=== PATIENT | female | born 1970 | race Caucasian/White ===

== ENCOUNTER 2017-12-11 11:17 | Outpatient (CLI) | payer MEDICAID | END 2017-12-11 11:18 | disposition home or self-care (01) | LOC: SC 11:17 | PROVIDERS: ATTEND Internal Medicine Pulmonary Disease | DX: G47.30 Sleep apnea, unspecified (principal); G47.10 Hypersomnia, unspecified; R06.83 Snoring; G47.8 Other sleep disorders | CPT/HCPCS: 99203; 99212 ==

== ENCOUNTER 2020-04-05 23:01 | Emergency (ER) | payer MEDICAID ==
--- NOTE | 2020-04-06 00:13 | ED Physician Documentation ---
PD HPI LOWER EXT INJURY - Stated complaint Stated Complaint: L FOOT INJ - Chief complaint Chief Complaint: Ext Problem - History obtained from History obtained from: Patient - History of Present Illness PD HPI LOW EXT INJURY LOCATION: Left, Foot Type of injury: Blunt / blow Where injury occurred: Home Timing - onset: Today Timing - details: Abrupt onset Pain level now: 6 Improved by: Rest Worsened by: Moving, Palpating Associated symptoms: Swelling, Discolored Recently seen: Not recently seen - Additional information Additional information: while walking in her house this morning, patients left foot struck corner of heavy furniture. she says her left fourth toe appeared to be dislocated, as it had marked deformity. she says she pulled traction on the toe and it appeared to reduce and she then donald-taped the 3rd and 4th toes. she presents at this time due to worsening pain and swelling of the foot. Review of Systems Musculoskeletal: reports: Extremity pain, Extremity swelling, Pain with weight bearing Neurologic: denies: Focal weakness, Numbness PD PAST MEDICAL HISTORY - Past Medical History Past Medical History: Yes Cardiovascular: [place] Endocrine/Autoimmune: Type 1 diabetes, Type 2 diabetes, Other GI: Other Psych: Depression Other Past Medical History: autonomic neuropathy, binasal hemianopsia, - Past Surgical History Past Surgical History: Yes General: Bowel surgery, Gastric surgery, Other - Present Medications Home Medications: Ambulatory Orders Medication Instructions Recorded Confirmed Alprazolam [Xanax] 1 mg PO BID PRN 07/07/15 04/05/20 traZODone [Desyrel] 100 mg PO QPM 07/07/15 04/05/20 Albuterol Sulfate [Proair 90 mcg IH Q6HR PRN 04/05/20 04/05/20 Digihaler] FLUoxetine [PROzac] 60 mg PO DAILY 04/05/20 04/05/20 Famotidine 40 mg PO DAILY 04/05/20 04/05/20 Fluticasone/Salmeterol [Advair 2 each IH DAILY 04/05/20 04/05/20 500-50 Diskus] Linaclotide [Linzess] 290 mcg PO QDAC 04/05/20 04/05/20 Omeprazole 20 mg PO DAILY 04/05/20 04/05/20 Hydrocodone/Acetaminophen 1 - 2 each PO Q6H PRN #14 tablet 04/06/20 [Hydrocodon-Acetaminophen 5-325] - Allergies Allergies/Adverse Reactions: Allergies Allergy/AdvReac Type Severity Reaction Status Date / Time levofloxacin Allergy Anaphylaxis Verified 04/05/20 23:22 - Social History Does the pt smoke?: No Smoking Status: Never smoker - Immunizations Immunizations are current?: No Immunizations: TDAP >10years/unknown - POLST Patient has POLST: No PD ED PE NORMAL - Vitals Vital signs reviewed: Yes - General General: Alert and oriented X 3, No acute distress, Well developed/nourished - Extremities Extremities: No deformity PD ED PE EXPANDED - Extremities Feet visual: 1 - bruising, swelling, tenderness 2 - bruising Results - Vitals Vitals: Vital Signs - 24 hr 04/05/20 04/06/20 23:05 02:06 Temperature 35.5 C L Heart Rate 80 78 Respiratory 18 16 Rate Blood Pressure 111/76 114/76 O2 Saturation 98 98 Oxygen O2 Source Room air - Rads (name of study) left foot xrays Radiology: Prelim report reviewed, See rad report PD MEDICAL DECISION MAKING - ED course Complexity details: reviewed results, re-evaluated patient, considered differential, d/w patient Departure - Departure Disposition: 01 Home, Self Care Clinical Impression: Toe fracture, left Condition: Good Instructions: ED Crutch Walking, ED Fx Toe Closed, ED Boot Aircast Walker Follow-Up: Gypsy Chin MD [Primary Care Provider] - Prescriptions: Hydrocodone/Acetaminophen [Hydrocodon-Acetaminophen 5-325] 1 - 2 each PO Q6H PRN #14 tablet PRN Reason: pain Discharge Date/Time: 04/06/20 02:06
[2020-04-06] MEDS ORDERED: HYDROcod/ACETAM 5/325 MG TABLET PO STA (00:50)
[2020-04-06 02:07] VITALS: BP 114/76
--- NOTE | 2020-04-06 07:45 | XRAY Report ---
PROCEDURE: Toe(s) LT INDICATIONS: stubbed toe, bruising, reports dislocation. TECHNIQUE: 3 views of the fourth toe(s) acquired. COMPARISON: None FINDINGS: Bones: There is a comminuted minimally displaced fracture at the distal aspect of the fourth phalanx. Lucency appears to extend to the articular surface. No suspicious bony lesions. Scattered areas of IP degenerative narrowing. Soft tissues: No suspicious soft tissue densities. IMPRESSION: Comminuted distal fourth phalanx fracture with extension to articular surface. The above findings are concordant with preliminary report. Reviewed by: Myra Jasso MD on 04/06/2020 7:44 AM PDT Approved by: Myra Jasso MD on 04/06/2020 7:44 AM PDT Station ID: [id number]
== END 2020-04-06 02:06 | disposition home or self-care (01) ==
LOC: ED 23:01
DX: S92.532A Displaced fracture of distal phalanx of left lesser toe(s), initial encounter for closed fracture (principal); W22.03XA Walked into furniture, initial encounter; Y92.009 Unspecified place in unspecified non-institutional (private) residence as the place of occurrence of the external cause
CPT/HCPCS: 73660; 99283; A9270

== ENCOUNTER 2020-04-15 04:20 | Outpatient (CLI) | payer MEDICAID | END 2020-04-15 04:21 | disposition critical access hospital (66) | LOC: EMS 04:20 | PROVIDERS: ATTEND Surgery | DX: R55 Syncope and collapse (principal); K92.1 Melena; M54.5 Low back pain; W19.XXXA Unspecified fall, initial encounter; Y92.008 Other place in unspecified non-institutional (private) residence as the place of occurrence of the external cause | CPT/HCPCS: A0425; A0427; A0999 ==

== ENCOUNTER 2020-04-15 04:36 | Emergency (ER) | payer MEDICAID ==
--- NOTE | 2020-04-15 04:41 | ED Physician Documentation ---
PD HPI GI BLEED - Stated complaint Stated Complaint: GI BLEED - History obtained from History obtained from: Patient, EMS - History of Present Illness Timing - onset: How many minutes ago (approximately 30-40 minutes [employer]) Timing - details: Abrupt onset Pain level now: 2 (LLQ abdomen) Associated symptoms: Maroon stool, Black/tarry stool, Abdominal pain, Dizzy, Near syncope / syncope. No: Vomiting, Coffee ground emesis, Hematemesis, Fever Contributing factors: No: Recent antibiotics, Alcohol use, Anticoagulated Improved by: Laying still Worsened by: Moving, Position Recently seen: Emergency Dept (T+R 10 days ago from this ED (by me) for unrelated c/o (was evaluated at that time for foot injury)) - Additional information Additional information: c/o 3 days of dark red/black tarry stool with gradually worsening generalized weakness, dizziness with standing/ambulation. Approximately 30-40 minutes [employer]IAN, patient got out of bed to use bathroom but had recurrence of her generalized weakness and became lightheaded and then had brief syncopal episode (estimated LOC was several seconds). EMS arrived to find patient awake, alert, oriented but still lying in the hallway because she was too weak and lightheaded to be able t o stand. EMS noted approximately 40-50 cc of dark red/black stool on the floor with clots. Patient was hypotensive in the field as well as on ED arrival. Review of Systems Constitutional: reports: Fatigue. denies: Fever, Chills, Sweats Eyes: reports: Reviewed and negative Ears: reports: Reviewed and negative Nose: reports: Reviewed and negative Throat: reports: Reviewed and negative Cardiac: reports: Reviewed and negative Respiratory: reports: Reviewed and negative GI: reports: Abdominal Pain, Bloody / black stool. denies: Abdominal Swelling, Nausea, Vomiting, Constipation, Diarrhea, Hematemesis : denies: Dysuria, Frequency Skin: reports: Reviewed and negative Musculoskeletal: reports: Reviewed and negative Neurologic: reports: Generalized weakness, Syncope. denies: Focal weakness, Numbness, Confused, Altered mental status, Headache, Head injury PD PAST MEDICAL HISTORY - Past Medical History Cardiovascular: [place] Endocrine/Autoimmune: Type 1 diabetes, Type 2 diabetes, Other GI: Other Psych: Depression - Past Surgical History Past Surgical History: Yes General: Bowel surgery, Gastric surgery, Other - Present Medications Home Medications: Ambulatory Orders Medication Instructions Recorded Confirmed Alprazolam [Xanax] 1 mg PO BID PRN 07/07/15 04/05/20 traZODone [Desyrel] 100 mg PO QPM 07/07/15 04/05/20 Albuterol Sulfate [Proair 90 mcg IH Q6HR PRN 04/05/20 04/05/20 Digihaler] Famotidine 40 mg PO DAILY 04/05/20 04/05/20 Fluticasone/Salmeterol [Advair 2 each IH DAILY 04/05/20 04/05/20 500-50 Diskus] Linaclotide [Linzess] 290 mcg PO QDAC 04/05/20 04/05/20 Omeprazole 20 mg PO DAILY 04/05/20 04/05/20 Aspirin 325 mg PO 04/15/20 - Allergies Allergies/Adverse Reactions: Allergies Allergy/AdvReac Type Severity Reaction Status Date / Time buspirone [From BuSpar] Allergy Anaphylaxis Verified 04/15/20 04:42 levofloxacin Allergy Anaphylaxis Verified 04/05/20 23:22 - Social History Does the pt smoke?: No Smoking Status: Never smoker - Immunizations Immunizations are current?: No Immunizations: TDAP >10years/unknown - POLST Patient has POLST: No PD ED PE NORMAL - Vitals Vital signs reviewed: Yes - General General: Alert and oriented X 3, Well developed/nourished - HEENT HEENT: Atraumatic, Moist mucous membranes - Neck Neck: Supple, no meningeal sign, No bony TTP - Cardiac Cardiac: RRR, No murmur - Respiratory Respiratory: No respiratory distress, Clear bilaterally - Abdomen Abdomen: Soft, Non distended, Other (mild tenderness to palpation LLQ and RUQ without rebound or guarding; there is grossly bloody (dark red/black) stool on buttocks, legs, and on the sheet/blanket she is lying on) - Derm Derm: Normal color, Warm and dry - Extremities Extremities: No edema - Neuro Neuro: Alert and oriented X 3 Results - Vitals Vitals: Oxygen O2 Source Room air - EKG (time done) No standard instances Rate: Rate (enter#) (77) Rhythm: NSR Turner: Normal Intervals: Normal DE QRS: Normal Ischemia: Normal ST segments - Labs Labs: Laboratory Tests 0604/15/20 04/15/20 06:47 07:44 07:44 WBC 5.2 RBC 2.78 L Hgb 8.4 L Hct 25.6 L MCV 92.1 MCH 30.2 MCHC 32.8 RDW 13.1 Plt Count 144 MPV 10.9 H Neut # (Auto) 3.6 Lymph # (Auto) 1.1 L [place] # (Auto) 0.5 Eos # (Auto) 0.1 Baso # (Auto) 0.0 Absolute Nucleated RBC 0.00 Nucleated RBC % 0.0 PT 13.4 H INR 1.2 APTT 25.8 Sodium 139 Potassium 3.9 Chloride 108 Carbon Dioxide 26 Anion Gap 5.0 L BUN 26 H Creatinine 0.4 Estimated GFR (MDRD) 170 Glucose 95 Lactic Acid Calcium 7.6 L Total Bilirubin 0.8 AST 11 ALT 10 Alkaline Phosphatase 28 L Total Protein 4.0 L Albumin 2.5 L Globulin 1.5 L Albumin/Globulin Ratio 1.7 Lipase 34 Blood Type Antibody Screen Crossmatch IS Only 04/15/20 04/15/20 04/15/20 07:44 07:44 11:35 WBC RBC Hgb 8.8 L Hct 25.7 L MCV MCH MCHC RDW Plt Count MPV Neut # (Auto) Lymph # (Auto) [place] # (Auto) Eos # (Auto) Baso # (Auto) Absolute Nucleated RBC Nucleated RBC % PT INR APTT Sodium Potassium Chloride Carbon Dioxide Anion Gap BUN Creatinine Estimated GFR (MDRD) Glucose Lactic Acid 0.7 Calcium Total Bilirubin AST ALT Alkaline Phosphatase Total Protein Albumin Globulin Albumin/Globulin Ratio Lipase Blood Type A POSITIVE Antibody Screen NEGATIVE Crossmatch IS Only See Detail - Rads (name of study) CT A/P Radiology: Prelim report reviewed, See rad report PD MEDICAL DECISION MAKING - ED course Complexity details: reviewed old records, reviewed results, re-evaluated patient, considered differential, d/w patient ED course: After 1 liter IV NS, patient's systolic blood pressures remained in the 70s-80s range (of note, she remained in a NSR with rate 70s-80s during entire ED stay, and diastolic blood pressures were no lower than 40s, with most diastolic readings in the 50s). Because of persistent hypotension, she was given 1 unit o negative blood early in stay (subsequent to the initial fluid bolus). There was significant difficulty in getting IV access beyond the single peripheral (RUE) IV and thus a central line (triple lumen) was placed. I attempted to place a right IJ CVC but was unsuccessful and thus anesthesiology was consulted and they were able to successfully place right IJ CVC. Case signed out to Dr. Henderson at end of my shift (pending CT A/P results) Departure - Departure Disposition: 02 Transfer Acute Care Hosp Clinical Impression: Gastrointestinal hemorrhage, Hypotension Condition: Critical Discharge Date/Time: 04/15/20 12:03
[2020-04-15] MEDS ORDERED: SODIUM CHLORIDE 0.9% 1,000 ML IV STA ×2 (05:05→07:38)
[2020-04-15] MEDS ORDERED: IOVERSOL 320 100 ML VIAL IVP ONE ×2 (05:13→13:35)
[2020-04-15 06:53] LABS: BASOPHILS % (AUTO) 0.6 %; EOSINOPHILS # (AUTO) 0.1 10^3/uL (0.0-0.7); EOSINOPHILS % (AUTO) 1.3 %; HGB - HEMOGLOBIN 8.4 g/dL (12.0-16.0); LYMPHOCYTES # (AUTO) 1.1 10^3/uL (1.5-3.5); LYMPHOCYTES % (AUTO) 20.1 %; MEAN CORPUSCULAR HEMOGLOBIN 30.2 pg (27.0-31.0); MEAN CORPUSCULAR HGB CONC 32.8 g/dL (32.0-36.0); MEAN CORPUSCULAR VOLUME 92.1 fL (81.0-99.0); MEAN PLATELET VOLUME 10.9 fL (7.9-10.8); MONOCYTES # (AUTO) 0.5 10^3/uL (0.0-1.0); MONOCYTES % (AUTO) 9.6 %; NEUTROPHILS # (AUTO) 3.6 10^3/uL (1.5-6.6); NEUTROPHILS % (AUTO) 68.2 %; PLT - PLATELET COUNT 144 10^3/uL (130-450); RED BLOOD COUNT 2.78 10^6/uL (4.20-5.40); RED CELL DISTRIBUTION WIDTH 13.1 % (12.0-15.0); WHITE BLOOD COUNT 5.2 x10^3/uL (4.8-10.8)
--- NOTE | 2020-04-15 07:46 | ANESTHESIA PROCEDURE NOTE ---
Height and Weight: Height 5 ft 1 in Weight (kg) 106 kg Body Mass Index 44.1 Vital Signs: Temp Pulse Resp BP Pulse Ox 36.3 C L 72 18 76/53 L 99 04/15/20 05:34 04/15/20 07:01 04/15/20 07:01 04/15/20 07:01 04/15/20 07:01 Allergies buspirone [From BuSpar] Allergy (Verified 04/15/20 04:42) Anaphylaxis levofloxacin Allergy (Verified 04/05/20 23:22) Anaphylaxis Anesth Central Line Template - Central Line Central Line Preparation: Consent Obtained, Time out completed, Ultrasound used, Sterile prep and drape Central line location: Right IJ Central line type: Triple lumen Central line catheter tip site resides: Superior vena cava (SVC) Central line aftercare: Chlorhexidine disc placed, Secured, Placement confirmed, No pneumothorax, No complications, Bundle checklist complete, Pt tolerated well Other Info/Details: Called for central line placement. Confirmed consent, time out completed. Right neck prepped with chlorahexadine and full sterile gown/gloves, drape and mask utilized. Right IJ imaged using ultrasound. 3ml of 1% lidocaine used for skin localization. Right IJ accessed with 20G needle and wire advanced with ease. A triple lumen catheter was advanced over the wire and wire was removed. All ports aspirate heme and flushed with saline. Line sutured in place and chest xray shows tip in distal SVC. Patient tolerated well.
[2020-04-15 07:59] LABS: INR 1.2 (0.8-1.2); PT - PROTHROMBIN TIME 13.4 secs (9.9-12.6)
[2020-04-15 08:04] LABS: ALBUMIN 2.5 g/dL (3.2-5.5); ALBUMIN/GLOBULIN RATIO 1.7 (1.0-2.2); BILIRUBIN,TOTAL 0.8 mg/dL (0.2-1.0); CALCIUM 7.6 mg/dL (8.5-10.3); CREATININE 0.4 mg/dL (0.4-1.0)
[2020-04-15 08:06] LABS: PARTIAL THROMBOPLASTIN TIME 25.8 secs (24.9-33.3)
--- NOTE | 2020-04-15 09:03 | XRAY Report ---
PROCEDURE: Chest for Line Placement INDICATIONS: central line placement TECHNIQUE: One view of the chest was acquired. COMPARISON: None FINDINGS: Surgical changes and devices: Right-sided central venous catheter is present with distal tip projecti ng over the distal SVC. Cholecystectomy clips. Lungs and pleura: No pleural effusions or pneumothorax. Lungs are clear. Mediastinum: Mediastinal contours appear normal. Heart size is normal. Bones and chest wall: No suspicious bony lesions. Overlying soft tissues appear unremarkable. IMPRESSION: Central line placement as above. Lungs are clear. Reviewed by: Myra Jasso MD on 04/15/2020 9:01 AM PDT Approved by: Myra Jasso MD on 04/15/2020 9:01 AM PDT Station ID: [id number]
--- NOTE | 2020-04-15 09:23 | ED Physician Documentation ---
ED Addendum - Addendum Addendum: 04/15/20 09:[address] Arboleda at shift change, briefly this is a 49-year-old woman with history of extensive bowel surgeries including a gastrectomy, Meagan-en-Y, total colectomy. She has a history of type I Diabetes but currently not taking insulin because her blood sugars have been low. She has a history of GI bleeding and also pernicious anemia. She came in with lower apparently GI bleeding although she is had the colectomy. She was hemodynamically unstable with low blood pressures that did respond to fluids and blood. Access includes a peripheral IV and central line. A CT was done and she was given a second unit of blood after my arrival. She looks well. I discussed with her disposition, she clearly needs to be admitted, she did not want to leave the [facility], but that may be prudent given her history 04/15/20 09:35 Spoke with the on-call surgeon, Dr. Jones, given her history he recommended transfer to a higher level of care. 04/15/20 10:05 Subsequent that there was a significant delay as the family had multiple questions that I could not answer about other facilities visitor policies currently due to coronavirus, but eventually they settled on [facility] and they were called for transfer. 04/15/20 10:06 Critical care time 45 minutes including direct bedside care, medical consultations, documentation. No procedures are included in this critical care time. 04/15/20 10:[address] Rios to [facility] at 10:28 AM and cobras were completed.
[2020-04-15] MEDS ORDERED: PANTOPRAZOLE 40 MG VIAL IVP STA (09:34)
--- NOTE | 2020-04-15 09:47 | CT Report ---
PROCEDURE: Abdomen/Pelvis W INDICATIONS: abd. pain, GI bleeding, hypotensive CONTRAST: IV CONTRAST: Optiray 320 ml: 100 PO CONTRAST: *NO PO CONTRAST TECHNIQUE: After the administration of oral and intravenous contrast, 5 mm thick sections acquired from the diap hragms to the symphysis. 5 mm thick coronal and sagittal reformats were acquired. For radiation dos e reduction, the following was used: automated exposure control, adjustment of mA and/or kV accordin g to patient size. COMPARISON: None. FINDINGS: Image quality: Excellent. ABDOMEN: Lung bases: Lung bases are clear. Heart size is normal. Solid organs: Liver and spleen are normal in size and enhancement. Gallbladder is surgically absent Biliary system is non dilated. Pancreas enhances normally. No adrenal nodules. Kidneys demonstra te normal size and enhancement, without hydronephrosis. Peritoneum and bowel: Gastric bypass has been performed. Bowel loops demonstrate normal wall thicknes s and caliber. No free fluid or air. Nodes and vessels: No retroperitoneal or mesenteric adenopathy by size criteria. Aorta and inferior vena cava are normal in size. Miscellaneous: No ventral hernias. PELVIS: Genitourinary: Bladder wall thickness is normal. Miscellaneous: No inguinal hernias or adenopathy. Bones: No suspicious bony lesions. No vertebral body compression fractures. IMPRESSION: 1. No acute process. 2. Appendix not seen. No evidence of appendicitis. Reviewed by: Nikos Enriquez MD on 04/15/2020 9:46 AM PDT Approved by: Nikos Enriquez MD on 04/15/2020 9:46 AM PDT Station ID: [id number]
[2020-04-15] MEDS ORDERED: LORazepam 2 MG/ML VIAL IVP STA (10:10)
[2020-04-15 11:35] VITALS: BP 88/50
[2020-04-15 11:45] LABS: HGB - HEMOGLOBIN 8.8 g/dL (12.0-16.0)
== END 2020-04-15 12:03 | disposition short-term general hospital (02) ==
LOC: EDUNIT# → ED 04:36
DX: K92.1 Melena (principal); I95.9 Hypotension, unspecified; D51.0 Vitamin B12 deficiency anemia due to intrinsic factor deficiency; R10.32 Left lower quadrant pain; R10.11 Right upper quadrant pain; E10.9 Type 1 diabetes mellitus without complications; Z90.3 Acquired absence of stomach [part of]; Z90.49 Acquired absence of other specified parts of digestive tract
CPT/HCPCS: 36415; 36430; 36556; 71045; 74177; 80053; 83605; 83690; 85014; 85018; 85025; 85610; 85730; 86850; 86900; 86901; 86920; 93005; 96361; 96374; 96375; 99291; J2060; P9016; Q9967

== ENCOUNTER 2020-04-15 12:10 | Outpatient (CLI) | payer MEDICAID | END 2020-04-17 12:11 | disposition short-term general hospital (02) | LOC: EMS 12:10 | PROVIDERS: ATTEND Surgery | DX: K92.2 Gastrointestinal hemorrhage, unspecified (principal) | CPT/HCPCS: A0425; A0426 ==

== ENCOUNTER 2020-08-12 17:39 | Outpatient (CLI) | payer MEDICAID | END 2020-08-12 17:40 | disposition EMS.NT | LOC: EMS 17:39 | PROVIDERS: ATTEND Surgery | DX: R10.9 Unspecified abdominal pain (principal) ==